=== PATIENT | male | born 1940 | race African-American/Black ===

== ENCOUNTER 2016-06-06 09:11 | Emergency (ER) | payer OTHER ==
[2016-06-06 09:25] VITALS: BMI 22.3
--- NOTE | 2016-06-06 09:54 | PDOC ---
History of Present Illness - General History Source: Patient Exam Limitations: No Limitations - History of Present Illness Initial Comments: 06/06/16 11:29 The patient is a year 75 old male with a significant past medical history of hypertension, and valve replacement (2010), presenting to the Emergency Department with mild shortness of breath as of last night. He reports that his shortness of breath started while he was making dinner last night, it was fairly mild, so he went to bed thinking it would improved. This morning, he reports that the sob worsened when he went to take a shower and was associated with NERI. He reports that he currently has sob at rest, and that it is exacerbated with exertion. He also admits to some lightheadedness. He admits that he is an active person, and denies previously experiencing these symptoms with exertion. He also admits to chronic productive cough. There is no associated chest pain, palpitations, n/v, diaphoresis, hemoptysis, leg swelling, orthopnea. Patient denies and diarrhea. Patient denies fever, or chills. Past Medical Hx: no personal or familial history of DVT or PE Social Hx: former smoker (quit 40 years ago) Surgical Hx: valve replacement (2010) PCP: Dr. Bala Holden Environmental Remediation Specialist: at [facility], patient is unsure of Drs name <Marcia Kumari - Last Filed: 06/06/16 13:09> <Samy Diego - Last Filed: 06/08/16 07:16> - General Chief Complaint: Shortness of Breath Stated Complaint: S.O.B Time Seen by Provider: 06/06/16 09:28 Past History <Marcia Kumari - Last Filed: 06/06/16 13:09> - Past Medical History HTN: Yes - Surgical History Cardiac Surgery: Yes (aortic valvue replace 2010) - Psycho/Social/Smoking Cessation Hx Anxiety: No Suicidal Ideation: No Smoking History: Former smoker Have you smoked in the past 12 months: No Information on smoking cessation initiated: No Hx Alcohol Use: No Drug/Substance Use Hx: No Substance Use Type: None <Samy Diego - Last Filed: 06/08/16 07:16> - Past Medical History Allergies/Adverse Reactions: Allergies Allergy/AdvReac Type Severity Reaction Status Date / Time shellfish derived Allergy Verified 06/06/16 09:21 Home Medications: Ambulatory Orders Naproxen [EC-Naprosyn] 375 mg PO Q12H 06/06/16 Spironolactone [Aldactone] 25 mg PO DAILY 06/06/16 Review of Systems - Review of Systems Able to Perform ROS?: Yes Comments:: 06/06/16 11:30 CONSTITUTIONAL: Reported: + Lightheadedness No reported: Fever, Chills, Diaphoresis, Generalized Weakness, Malaise, Loss of Appetite HEENT: No reported: Rhinorrhea, Nasal Congestion, Throat Pain, Throat Swelling, Difficulty Swallowing, Mouth Swelling, Ear Pain, Eye Pain, Visual Changes CARDIOVASCULAR: No reported: Chest Pain, Syncope, Palpitations, Irregular Heart Rate, Lightheadedness, Peripheral Edema RESPIRATORY: Present: + Shortness of Breath, + Dyspnea on exertion, + Cough (chronic) No reported: Orthopnea, Wheezing, Stridor, Hemoptysis GASTROINTESTINAL: No reported: Abdominal pain, Abdominal Distension, Nausea, Vomiting, Diarrhea, Constipation, Melena, Hematochezia GENITOURINARY: No reported: Dysuria, Frequency, Urgency, Hesitancy, Flank Pain, Genital Pain MUSCULOSKELETAL: No reported: Myalgia, Arthralgia, Joint Swelling, Back pain, Neck Pain SKIN: No reported: Rash, Itching, Pallor HEMATOLOGIC/IMMUNOLOGIC: No reported: Easy Bleeding, Easy Bruising, Lymphadenopathy, Frequent infections ENDOCRINE: No reported: Unexplained Weight Gain, Unexplained Weight Loss, Heat Intolerance , Cold Intolerance NEUROLOGIC: No reported: Headache, Focal Weakness, Paresthesias, Vertigo, Unsteady Gait, Seizure, Mental Status Changes, Incontinence PSYCHIATRIC: No reported: Anxiety, Depression <Marcia Kumari - Last Filed: 06/06/16 13:09> *Physical Exam - Vital Signs Last Vital Signs Temp Pulse Resp BP Pulse Ox 97.8 F 56 L 20 157/91 97 06/06/16 09:23 06/06/16 09:23 06/06/16 09:23 06/06/16 09:23 06/06/16 09:23 - Physical Exam Comments: 06/06/16 11:30 GENERAL: The patient is awake, alert, and fully oriented, Nontoxic - in no acute distress. HEAD: Normocephalic, atraumatic. EYES: extraocular movements intact, sclera anicteric, conjunctiva clear. ENT: Normal voice, Moist mucous membranes. NECK: Normal range of motion, No JVD LUNGS: Breath sounds equal, clear to auscultation bilaterally. No wheezes, no rhonchi, no rales. HEART: regular, bradycardic, without murmur, rub or gallop. ABDOMEN: Soft, nontender, normoactive bowel sounds. No guarding, no rebound. No masses. No CVA tenderness EXTREMITIES: Normal range of motion, no edema. No clubbing or cyanosis. No cords , erythema, or tenderness. NEUROLOGICAL: No facial asymmetry, Normal speech, normal gait. PSYCH: Normal mood, normal affect. SKIN: Warm, Dry, normal turgor. <Marcia Kumari - Last Filed: 06/06/16 13:09> - Vital Signs Last Vital Signs Temp Pulse Resp BP Pulse Ox 97.8 F 56 L 20 157/91 97 06/06/16 09:23 06/06/16 09:23 06/06/16 09:23 06/06/16 09:23 06/06/16 09:23 <Samy Diego - Last Filed: 06/08/16 07:16> Heart Score/ECG Review - ECG Impressions Comment:: 06/06/16 10:32 Twelve-lead EKG was performed and reviewed by me. There is normal sinus rhythm with rate of 49 The axis is normal. First degree AV block QTc interval of 482 T wave inversions in the inferior lateral leads no old ekg for comparison 06/06/16 17:28 Twelve-lead EKG was performed and reviewed by me. There is normal sinus rhythm with rate of 53 The axis is normal. First degree AV block QTc interval of 497 T wave inversions in the inferior lateral leads no changes from prior ekg <Samy Diego - Last Filed: 06/08/16 07:16> ED Treatment Course - LABORATORY CBC & Chemistry Diagram: 06/06/16 10:17 06/06/16 10:17 - ADDITIONAL ORDERS Additional order review: Laboratory Results 06/06/16 06/06/16 06/06/16 10:30 10:26 10:17 D-Dimer Cancelled VBG pH 7.35 POC VBG pCO2 57.9 H POC VBG pO2 21.9 L Mixed VBG HCO3 31.5 H Sodium 142 Potassium 4.2 Chloride 102 Carbon Dioxide 30 Anion Gap 10 BUN 18 Creatinine 1.1 Creat Clearance w eGFR > 60 Random Glucose 101 Calcium 8.9 Total Bilirubin 1.0 AST 29 ALT 31 Alkaline Phosphatase 58 Creatine Kinase Creatine Kinase Index CK-MB (CK-2) Troponin I B-Natriuretic Peptide 1609.37 H Total Protein 7.4 Albumin 3.8 06/06/16 10:17 D-Dimer VBG pH POC VBG pCO2 POC VBG pO2 Mixed VBG HCO3 Sodium Potassium Chloride Carbon Dioxide Anion Gap BUN Creatinine Creat Clearance w eGFR Random Glucose Calcium Total Bilirubin AST ALT Alkaline Phosphatase Creatine Kinase 208 Creatine Kinase Index 2.4 CK-MB (CK-2) 5.174 H Troponin I 0.02 B-Natriuretic Peptide Total Protein Albumin - RADIOLOGY Radiograph Interpretation: 06/06/16 13:09 Chest XRay As reviewed by Dr. Clif Silva IMPRESSION: Large heart. Previous surgery. No acute pathology. <Marcia Kumari - Last Filed: 06/06/16 13:09> - LABORATORY CBC & Chemistry Diagram: 06/06/16 10:17 06/06/16 10:17 <Samy Diego - Last Filed: 06/08/16 07:16> Medical Decision Making - Medical Decision Making 06/06/16 10:25 75y M hx of htn, s/p ao valve replacement 5 years ago presents with gradual onset of sob - started last night, but this morning, worsened significantly when he was in the bathroom when he was feeling sob, feeling like he couldnt catch his breath - no associated chest pain, dizziness, palpitations, n/v, diaphoresis. On exam the patient is in no acute distress, his vitals noted for mild bradycardia to the high 40s-low 50s (he had been told he was bradycardic in the past, likely secondary to his cardiovascular status as he frequently goes to the gym to excercise) differential is wide includes arrythmia/bradycardia, pe, anemia, atypical acs, ptx no cough/fever to suggest pna, no congestion/leg swelling/orthpnea to suggest chf will obtain cbc, cmp, trop, cxr, ekg will reassess 06/06/16 13:41 labs reviewed mild leukopenia noted bnp and ddimer also slightly elevated will obtain cta to r/o pe cxr negative pt curently resiting comfortably in his strtcher A portion of this note was documented by scribe services under my direction. I have reviewed the details of the note, within reason, and agree with the documentation with the following case summary and management plan written by me 06/06/16 15:27 pts CTA of the chest is negative for PE, there is a solitary nodule noted - will have pt fu with his PMD for this in 3 months. The pt is currently asypmtomatic. I will check another trop and ekg. i also discussed with dr. Haywood (covering for dr. Pineda) - he reviewed his last ekg which showed diffuse TWI in the lateral leads as well as infioer leads on his prior ekg as well as one in 2012 - consistent with our EKG here. if the patient is able to ambulate the length of the emergency department (~200 feet) without any sob/neri/cp, i will d/c the pt to fu with dr. pineda on wednesday or wednesday. if he is sob, will keep pt here for further evaluation. Dr. Haywood agrees with the plan. 06/06/16 17:22 pt trop neg pt was ambulating for approx 30 min here in the ED without any cp/sob will dc the pt to fu with dr. Pineda on wednesday return precautions were discussed a copy of the pts blood work and imaging results will be given to the patient, as well as instructiosn to fu imging for his nodule. I discussed the physical exam findings, ancillary test results and final diagnoses with the patient. I answered all of the patient's questions. The patient was satisfied with the care received and felt comfortable with the discharge plan and treatment plan. The patient will call their primary care physician within 24 hours to arrange follow-up and will return to the Emergency Department with any new, persistent or worsening symptoms. 06/08/16 07:16 <Samy Diego - Last Filed: 06/08/16 07:16> *DC/Admit/Observation/Transfer - Attestations Scribe Attestion: 06/06/16 11:30 Documentation prepared by Marcia Kumari, acting as medical billing manager for Samy Diego MD. <Marcia Kumari - Last Filed: 06/06/16 13:09> - Discharge Dispostion Admit: No <Samy Diego - Last Filed: 06/08/16 07:16> Diagnosis at time of Disposition: Shortness of breath, Lung nodule - Discharge Dispostion Disposition: HOME Condition at time of disposition: Improved - Referrals Referrals: Bala Holden [Primary Care Provider] - - Patient Instructions Printed Discharge Instructions: DI for Shortness of Breath Additional Instructions: Return to the emergency department immediately with ANY new, persistent or worsening symptoms including any shortness of breath, chest pain or any other concerns. There was a nodule seen on your Chest CT - pleae follow up with your doctor for further evaluation and monitoring of this. Your workup today was negative for any acute disease - but please make sure you follow up with your doctor for further evaluation of your shortness of breath episode. A copy of your blood work, CT, chest xray will be included so you may review with your doctor. You MUST call and follow up with your doctor on wednesday or wednesday for further evaluation of your symptoms. Results were discussed with you. Please make sure your doctor reviews the results of your emergency evaluation. Print Language: FRISIAN
[2016-06-06 10:30] LABS: VENOUS PH 7.35 (7.32-7.42)
[2016-06-06 10:31] LABS: VENOUS BLOOD GAS HCO3 31.5 meq/L (19-25)
[2016-06-06 11:07] LABS: ALBUMIN 3.8 g/dl (3.4-5.0); ANION GAP 10 (8-16); CALCIUM 8.9 mg/dL (8.5-10.1); CO2 30 mmol/L (21-32); CREATININE 1.1 mg/dL (0.7-1.3); GLUCOSE,RANDOM 101 mg/dL (74-106); SGOT/AST 29 U/L (15-37); SGPT/ALT 31 U/L (12-78); TOT PROT 7.4 g/dl (6.4-8.2)
[2016-06-06 11:09] LABS: ALK PHOS 58 U/L (45-117); TROPONIN I 0.02 ng/ml (0.00-0.05)
[2016-06-06 11:57] LABS: BASOPHIL 1.4 % (0-2.0); EOSINOPHIL 12.2 % (0-4.5); MCH 27.1 pg (25.7-33.7); MCHC 31.4 g/dl (32.0-35.9); MEAN CELL VOLUME 86.2 fl (80-96); MEAN PLT VOLUME 10.8 fl (7.5-11.1); NEUTROPHILS 50.2 % (42.8-82.8); PLATELET COUNT 131 K/MM3 (134-434); RDW 13.4 % (11.9-15.9); WHITE BLOOD COUNT 2.9 K/mm3 (4.0-10.0)
[2016-06-06 16:29] LABS: TROPONIN I 0.03 ng/ml (0.00-0.05)
[2016-06-06 17:44] VITALS: BP 147/79; PULSE 62
[2016-06-06 17:45] VITALS: TEMP 98.2
--- NOTE | 2016-06-06 20:57 | EKG ---
Test Reason : Blood Pressure : / mmHG Vent. Rate : 053 BPM Atrial Rate : 053 BPM P-R Int : 236 ms QRS Dur : 086 ms QT Int : 530 ms P-R-T Axes : 046 015 223 degrees QTc Int : 497 ms SINUS BRADYCARDIA WITH 1ST DEGREE A-V BLOCK ANTERIOR INFARCT , AGE UNDETERMINED ABNORMAL ECG WHEN COMPARED WITH ECG OF 06-JUN-2016 09:33, NO SIGNIFICANT CHANGE WAS FOUND Confirmed by SUSI BOATENG MD ([id number]) on 06/06/2016 8:56:57 PM Referred By: Confirmed By:SUSI BOATENG MD
--- NOTE | 2016-06-06 21:02 | EKG ---
Test Reason : Blood Pressure : / mmHG Vent. Rate : 049 BPM Atrial Rate : 049 BPM P-R Int : 220 ms QRS Dur : 090 ms QT Int : 534 ms P-R-T Axes : 057 001 202 degrees QTc Int : 482 ms SINUS BRADYCARDIA WITH SINUS ARRHYTHMIA WITH 1ST DEGREE A-V BLOCK PROLONGED QT ABNORMAL ECG WHEN COMPARED WITH ECG OF 10-DEC-2003 08:27, NE INTERVAL HAS INCREASED Confirmed by KILO VAZ, SUSI ([id number]) on 06/06/2016 9:01:29 PM Referred By: Confirmed By:SUSI BOATENG MD
== END 2016-06-06 17:47 | disposition home or self-care (01) ==
LOC: JER 09:11 → SUPCPDRO 09:11 → JER 17:47
DX: R06.02 Shortness of breath (principal); R91.1 Solitary pulmonary nodule; I10 Essential (primary) hypertension; Z95.2 Presence of prosthetic heart valve; Z87.891 Personal history of nicotine dependence
CPT/HCPCS: 36415; 71010-TC; 71275-TC; 80053; 82550; 82553; 82803; 83880; 84443; 84484; 85025; 85379; 93005; 93010; 99282-25

== ENCOUNTER 2021-10-21 22:50 | Inpatient (IN) | payer BC, OTHER ==
[2021-10-21 23:06] VITALS: BMI 19.5
[2021-10-22 00:53] LABS: CALCIUM 8.9 mg/dL (8.5-10.1); CHLORIDE 105 mmol/L (98-107); SODIUM 142 mmol/L (136-145)
[2021-10-22 00:55] LABS: ALBUMIN 3.4 g/dl (3.4-5.0); ANION GAP 5 MMOL/L (8-16); BLOOD UREA NITROGEN 20.5 mg/dL (7-18); CO2 33 mmol/L (21-32); GLUCOSE,RANDOM 104 mg/dL (74-106)
[2021-10-22 00:57] LABS: CREATININE 1.3 mg/dL (0.55-1.3); SGOT/AST 41 U/L (15-37); SGPT/ALT 39 U/L (13-61)
[2021-10-22 00:59] LABS: BILIRUBIN,TOTAL 0.7 mg/dL (0.2-1)
[2021-10-22 01:01] LABS: ALK PHOS 88 U/L (45-117)
[2021-10-22 01:47] LABS: BASO % 0.9 % (0-2.0); EOS % 4.9 % (0-4.5); HEMATOCRIT 36.1 % (35.4-49); HEMOGLOBIN 11.7 GM/dL (11.7-16.9); LYMPH % 15.2 % (8-40); MCH 27.6 pg (25.7-33.7); MCHC 32.5 g/dl (32.0-35.9); MEAN CELL VOLUME 84.8 fl (80-96); MEAN PLT VOLUME 10.6 fl (7.5-11.1); MONO % 9.1 % (3.8-10.2); NEUT % 69.9 % (42.8-82.8); PLATELET COUNT 133 10^3/uL (134-434); RBC 4.25 M/mm3 (4.00-5.60); RDW 13.6 % (11.9-15.9); WHITE BLOOD COUNT 3.7 K/mm3 (4.0-10.0)
[2021-10-22] MEDS ORDERED: hydrALAZINE HCL 25 MG TABLET (FP) PO ONE (03:24)
[2021-10-22] MEDS ORDERED: ASPIRIN 81 MG CHEWABLE TABLETS PO ONE (04:16)
[2021-10-22] MEDS ORDERED: hydrALAZINE HCL 25 MG TABLET (FP) ONE (04:30)
[2021-10-22 07:49] LABS: BASO % 0.8 % (0-2.0); EOS % 4.6 % (0-4.5); HEMATOCRIT 34.7 % (35.4-49); HEMOGLOBIN 11.4 GM/dL (11.7-16.9); LYMPH % 21.4 % (8-40); MCH 27.3 pg (25.7-33.7); MCHC 32.8 g/dl (32.0-35.9); MEAN CELL VOLUME 83.4 fl (80-96); NEUT % 62.2 % (42.8-82.8); PLATELET COUNT 122 10^3/uL (134-434); RBC 4.16 M/mm3 (4.00-5.60); RDW 13.5 % (11.9-15.9); WHITE BLOOD COUNT 4.3 K/mm3 (4.0-10.0)
[2021-10-22 08:18] LABS: ALBUMIN 3.2 g/dl (3.4-5.0); BLOOD UREA NITROGEN 17.5 mg/dL (7-18); CALCIUM 8.5 mg/dL (8.5-10.1)
[2021-10-22 08:22] LABS: BILIRUBIN,TOTAL 0.8 mg/dL (0.2-1); TOT PROT 6.6 g/dl (6.4-8.2)
[2021-10-22 08:24] LABS: CHOLESTEROL 170 mg/dL (50-200); LDL CHOLESTEROL (ONLY SJRH) 103 mg/dL (5-100)
[2021-10-22 08:25] LABS: HDL CHOLESTEROL 64 mg/dL (40-60)
[2021-10-22 08:34] LABS: TRIGLYCERIDES 46 mg/dL (0-150)
[2021-10-22 08:40] LABS: PHOSPHOROUS 2.8 mg/dL (2.5-4.9)
[2021-10-22] MEDS ORDERED: ENOXAPARIN NA (PORCINE) 40 MG/0.4 ML DISP.SYRIN SQ ONE (08:53)
[2021-10-22] MEDS: VALSARTAN 160 MG TABLET PO SCH (09:17)
[2021-10-22] MEDS: ENOXAPARIN NA (PORCINE) 40 MG/0.4 ML DISP.SYRIN SQ SCH (09:17)
[2021-10-22] MEDS ORDERED: ATORVASTATIN CA 80 MG TABLET (FP) PO ONE (10:06)
[2021-10-22] MEDS ORDERED: ATORVASTATIN CA 80 MG TABLET (FP) ONE (10:34)
[2021-10-22 13:45] LABS: URINE APPEARANCE CLEAR; URINE BILIRUBIN NEGATIVE (NEGATIVE); URINE COLOR YELLOW; URINE GLUCOSE (UA) NEGATIVE (NEGATIVE); URINE KETONE NEGATIVE (NEGATIVE); URINE LEUK ESTERASE NEGATIVE (NEGATIVE); URINE NITRITE NEGATIVE (NEGATIVE); URINE PROTEIN NEGATIVE (NEGATIVE); URINE UROBILINOGEN 0.2 mg/dL (0.2-1.0)
[2021-10-22] MEDS ORDERED: ATORVASTATIN CA 20 MG TABLET (FP) PO SCH (22:00)
[2021-10-22] MEDS ORDERED: ATORVASTATIN CA 20 MG TABLET (FP) ONE (22:44)
[2021-10-23] MEDS ORDERED: DOCUSATE SODIUM 100 MG CAPSULE (FP) PO ONE (07:34)
[2021-10-23] MEDS: DOCUSATE SODIUM 100 MG CAPSULE (FP) PO SCH ×2 (07:37→11:02)
[2021-10-23] MEDS ORDERED: ASPIRIN 81 MG CHEWABLE TABLETS PO SCH (10:00)
[2021-10-23] MEDS ORDERED: SPIRONOLACTONE 25 MG TABLET PO SCH (10:00)
[2021-10-23] MEDS: VALSARTAN 160 MG TABLET PO SCH (11:02)
[2021-10-23] MEDS: ENOXAPARIN NA (PORCINE) 40 MG/0.4 ML DISP.SYRIN SQ SCH (11:03)
[2021-10-23] MEDS ORDERED: CARVEDILOL 3.125 MG TABLET (FP) PO SCH (11:30)
[2021-10-23 15:15] VITALS: BP 171/97; PULSE 61; TEMP 98.3
[2021-10-23] MEDS ORDERED: amLODIPine BESYLATE 2.5 MG TABLET (FP) PO SCH (18:00)
== END 2021-10-23 18:36 | disposition home or self-care (01) | DRG 948 ==
LOC: JER 22:50 → JERBED 10-22 02:13 → OBSVTOIN 10-22 16:39 → J4S 10-23 10:15
PROVIDERS: ADMIT Hospitalist; ATTEND Internal Medicine
DX: R41.82 Altered mental status, unspecified (principal); I50.22 Chronic systolic (congestive) heart failure; I44.2 Atrioventricular block, complete; I42.8 Other cardiomyopathies; I48.20 Chronic atrial fibrillation, unspecified; I24.8 Other forms of acute ischemic heart disease; I11.0 Hypertensive heart disease with heart failure; I27.20 Pulmonary hypertension, unspecified; F43.9 Reaction to severe stress, unspecified; R55 Syncope and collapse; Z95.2 Presence of prosthetic heart valve; Z95.0 Presence of cardiac pacemaker
CPT/HCPCS: 36415; 70450-TC; 71045-TC-FY; 80053; 80061; 81003; 83735; 83880; 84100; 84443; 84484; 85025; 87086; 93005; 93010; 93306-TC; 99285-25; C9803-CS; G0378; U0003; U0005

== ENCOUNTER 2021-12-18 04:14 | Day surgery (SDC) | payer BC ==
[2021-12-16 12:23] VITALS: BMI 19.5
[~2021-12-18 04:14] MED LIST: TOBRAMYCIN/DEXAMETHASONE OPHTH. OINTMENT 1 TUBE TP ONE
[2021-12-18] MEDS: CIPROFLOXACIN 0.3% EYE DROPS 5 ML BOTTLE ONE ×3 (06:30→06:40)
[2021-12-18] MEDS: PHENYLEPHRINE 2.5% OPHTH SOLN 15 ML BOTTLE ONE ×3 (06:30→06:40)
[2021-12-18] MEDS: DICLOFENAC SODIUM 0.1% OPHTHALMIC 2.5ML BOTTLE ONE ×3 (06:30→06:40)
[2021-12-18] MEDS: TROPICAMIDE 1% OPHTH SOLN 15 ML BOTTLE ONE ×3 (06:30→06:40)
[2021-12-18] MEDS ORDERED: POVIDONE-IODINE 5% OPHTHALMIC PREP 30 ML SOLUTION ONE (07:06)
[2021-12-18] MEDS ORDERED: TETRACAINE 0.5% OPHTH SOLN 2 ML BOTTLE ONE (07:06)
[2021-12-18] MEDS ORDERED: TOBRAMYCIN/DEXAMETHASONE OPHTH. OINTMENT 1 TUBE ONE (07:08)
[2021-12-18] MEDS ORDERED: EPINEPHrine/PF 1 MG/1 ML (1:1,000) AMPULE ONE (07:09)
[2021-12-18] MEDS ORDERED: LIDOCAINE HCL/PF 1% SDV 5ML VIAL ONE (07:09)
[2021-12-18] MEDS ORDERED: BSS (NA/CA/MG/K) BALANCED SALT SOLUTION OPHTH SOLN 15 ML BOTTLE ONE (07:10)
[2021-12-18] MEDS ORDERED: ACETAMINOPHEN 325 MG TABLET (FP) PO PRN (07:33)
[2021-12-18] MEDS ORDERED: MIDAZOLAM HCL 2 MG/2 ML SINGLE DOSE VIAL ONE (07:38)
[2021-12-18] MEDS ORDERED: TETRACAINE 0.5% OPHTH SOLN 2 ML BOTTLE TP ONE (07:41)
[2021-12-18] MEDS ORDERED: POVIDONE-IODINE 5% OPHTHALMIC PREP 30 ML SOLUTION OD ONE (07:43)
[2021-12-18] MEDS ORDERED: TROPICAMIDE 1% OPHTH SOLN 15 ML BOTTLE OP SCH (07:45)
[2021-12-18] MEDS ORDERED: CIPROFLOXACIN HCL 0.3% OPHTH 2.5ML BOTTLE OP SCH (07:45)
[2021-12-18] MEDS ORDERED: KETOROLAC TROMETHAMINE 0.5% EYE DROP 1 DROP DROPS OP SCH (07:45)
[2021-12-18] MEDS ORDERED: PHENYLEPHRINE 2.5% OPHTH SOLN 15 ML BOTTLE OP SCH (07:45)
[2021-12-18] MEDS ORDERED: TRYPAN BLUE 0.5 ML DISP.SYRIN ONE (07:54)
[2021-12-18] MEDS ORDERED: BSS (NA/CA/MG/K) BALANCED SALT SOLUTION OPHTH SOLN 15 ML BOTTLE OD ONE (07:55)
[2021-12-18] MEDS ORDERED: TRYPAN BLUE 0.5 ML DISP.SYRIN IO ONE (07:56)
[2021-12-18] MEDS ORDERED: LIDOCAINE HCL 1% PRESERVATIVE FREE - 30ML VIAL IO ONE (07:56)
[2021-12-18] MEDS ORDERED: CHONDROITIN SU A/HYALUR SOD 1 KIT IO ONE (07:56)
[2021-12-18] MEDS ORDERED: EPINEPHrine/PF 1 MG/1 ML (1:1,000) AMPULE SQ ONE (08:03)
[2021-12-18] MEDS ORDERED: TOBRAMYCIN/DEXAMETHASONE OPHTH. OINTMENT 1 TUBE TP ONE (08:21)
[2021-12-18 10:31] VITALS: RESP 20; TEMP 98.2
[2021-12-18 10:34] VITALS: BP 171/94; PULSE 80
== END 2021-12-18 09:22 | disposition home or self-care (01) ==
LOC: JASU-SURG 04:14
PROVIDERS: ATTEND Ophthalmology
PROC: 08RJ3JZ Replacement of Right Lens with Synthetic Substitute, Percutaneous Approach (ICD-10-PCS; principal; 2021-12-18 07:30)
DX: H25.11 Age-related nuclear cataract, right eye (principal)

== ENCOUNTER 2021-12-29 22:07 | Inpatient (IN) | payer BC ==
[2021-12-29 22:43] VITALS: BMI 19.5
[2021-12-29 23:23] LABS: BASO % 0.6 % (0-2.0); EOS % 0.9 % (0-4.5); HEMOGLOBIN 12.3 GM/dL (11.7-16.9); LYMPH % 7.5 % (8-40); MCH 27.9 pg (25.7-33.7); MCHC 32.4 g/dl (32.0-35.9); MEAN PLT VOLUME 10.3 fl (7.5-11.1); MONO % 8.3 % (3.8-10.2); NEUT % 82.7 % (42.8-82.8); PLATELET COUNT 160 10^3/uL (134-434); RBC 4.42 M/mm3 (4.00-5.60); RDW 14.2 % (11.9-15.9); WHITE BLOOD COUNT 6.2 K/mm3 (4.0-10.0)
[2021-12-29 23:26] LABS: EPI CELLS 10 /uL (0-25.1); HYALINE CASTS 4 /uL (0-3.1); URINE APPEARANCE CLEAR; URINE BACTERIA 8 /uL (0-1359); URINE BILIRUBIN NEGATIVE (NEGATIVE); URINE COLOR YELLOW; URINE GLUCOSE (UA) NEGATIVE (NEGATIVE); URINE KETONE NEGATIVE (NEGATIVE); URINE LEUK ESTERASE NEGATIVE (NEGATIVE); URINE NITRITE NEGATIVE (NEGATIVE); URINE PROTEIN 2+ (NEGATIVE); URINE RBC 39 /uL (0-23.9); URINE UROBILINOGEN 0.2 mg/dL (0.2-1.0); URINE WBC 12 /uL (0-25.8)
[2021-12-29 23:28] LABS: PHENCYCLIDINE,URINE NEGATIVE (NEGATIVE); URINE BARBITURATES NEGATIVE (NEGATIVE); URINE BENZODIAZEPINES NEGATIVE (NEGATIVE)
[2021-12-29 23:29] LABS: COCAINE, UR NEGATIVE (NEGATIVE); METHADONE, UR NEGATIVE (NEGATIVE)
[2021-12-29 23:31] LABS: INR 1.05 (0.83-1.09); PROTHROMBIN TIME (PATIENT) 12.1 SEC (9.7-13.0)
[2021-12-29 23:42] LABS: CHLORIDE 101 mmol/L (98-107); SODIUM 134 mmol/L (136-145)
[2021-12-29 23:44] LABS: CALCIUM 8.9 mg/dL (8.5-10.1)
[2021-12-29 23:45] LABS: ALBUMIN 3.3 g/dl (3.4-5.0); BLOOD UREA NITROGEN 18.4 mg/dL (7-18); CO2 28 mmol/L (21-32); GLUCOSE,RANDOM 119 mg/dL (74-106); LACTIC ACID 4.4 mmol/L (0.4-2.0); OPIATES, URI NEGATIVE (NEGATIVE); URINE AMPHETAMINES NEGATIVE (NEGATIVE)
[2021-12-29 23:48] LABS: CREATININE 1.4 mg/dL (0.55-1.3); SGOT/AST 171 U/L (15-37)
[2021-12-29 23:49] LABS: TOT PROT 8.4 g/dl (6.4-8.2)
[2021-12-29 23:50] LABS: BILIRUBIN,TOTAL 0.9 mg/dL (0.2-1)
[2021-12-29 23:51] LABS: ALK PHOS 81 U/L (45-117)
[2021-12-29 23:53] LABS: ANION GAP 4 MMOL/L (8-16); SGPT/ALT 64 U/L (13-61)
[2021-12-30] MEDS ORDERED: SODIUM CHLORIDE 0.9% 500 ML INFUS.BAG IV ONE (00:02)
[2021-12-30 01:52] LABS: VENOUS BASE EXCESS 3.8 mmol/L (-2-2); VENOUS O2 SATURATION 41.8 % (70-80); VENOUS PH 7.404 (7.310-7.410)
[2021-12-30 01:53] LABS: CHLORIDE 106 mmol/L (98-107); SODIUM 142 mmol/L (136-145)
[2021-12-30 01:58] LABS: ANION GAP 7 MMOL/L (8-16); BLOOD UREA NITROGEN 17.1 mg/dL (7-18); CALCIUM 8.6 mg/dL (8.5-10.1); CO2 29 mmol/L (21-32)
[2021-12-30 01:59] LABS: CREATININE 1.2 mg/dL (0.55-1.3)
[2021-12-30 02:07] LABS: GLUCOSE,RANDOM 97 mg/dL (74-106)
[2021-12-30] MEDS ORDERED: ASPIRIN 81 MG CHEWABLE TABLETS PO ONE (02:16)
[2021-12-30] MEDS ORDERED: ASPIRIN 81 MG CHEWABLE TABLETS ONE (02:20)
[2021-12-30 06:47] LABS: BASO % 0.5 % (0-2.0); EOS % 0.4 % (0-4.5); HEMOGLOBIN 11.3 GM/dL (11.7-16.9); MCH 27.6 pg (25.7-33.7); MCHC 32.3 g/dl (32.0-35.9); MEAN CELL VOLUME 85.3 fl (80-96); MEAN PLT VOLUME 9.8 fl (7.5-11.1); MONO % 7.6 % (3.8-10.2); NEUT % 82.5 % (42.8-82.8); PLATELET COUNT 128 10^3/uL (134-434); WHITE BLOOD COUNT 5.6 K/mm3 (4.0-10.0)
[2021-12-30 07:07] LABS: CHLORIDE 105 mmol/L (98-107); SODIUM 141 mmol/L (136-145)
[2021-12-30 07:09] LABS: CALCIUM 8.4 mg/dL (8.5-10.1)
[2021-12-30 07:10] LABS: ALBUMIN 3.1 g/dl (3.4-5.0); ANION GAP 7 MMOL/L (8-16); BLOOD UREA NITROGEN 14.8 mg/dL (7-18); CO2 29 mmol/L (21-32); GLUCOSE,RANDOM 85 mg/dL (74-106); MAGNESIUM 1.9 mg/dL (1.8-2.4)
[2021-12-30 07:12] LABS: SGOT/AST 45 U/L (15-37); SGPT/ALT 36 U/L (13-61)
[2021-12-30 07:13] LABS: PHOSPHOROUS 2.3 mg/dL (2.5-4.9)
[2021-12-30 07:14] LABS: TOT PROT 6.6 g/dl (6.4-8.2)
[2021-12-30 07:15] LABS: ALK PHOS 76 U/L (45-117)
[2021-12-30] MEDS ORDERED: amLODIPine BESYLATE 5 MG TABLET (FP) ONE (09:49)
[2021-12-30] MEDS ORDERED: ENOXAPARIN NA (PORCINE) 40 MG/0.4 ML DISP.SYRIN SQ ONE (09:50)
[2021-12-30] MEDS: ENOXAPARIN NA (PORCINE) 40 MG/0.4 ML DISP.SYRIN SQ SCH (10:45)
[2021-12-30] MEDS: amLODIPine BESYLATE 5 MG TABLET (FP) PO SCH (10:45)
[2021-12-30] MEDS: TORSEMIDE 10 MG TABLET PO SCH (10:45)
[2021-12-30] MEDS: ATORVASTATIN CA 20 MG TABLET (FP) PO SCH (21:17)
[2021-12-31 09:48] LABS: HEMATOCRIT 39.5 % (35.4-49); MCH 28.1 pg (25.7-33.7); MEAN CELL VOLUME 85.1 fl (80-96); MEAN PLT VOLUME 9.1 fl (7.5-11.1); PLATELET COUNT 144 10^3/uL (134-434); RBC 4.64 M/mm3 (4.00-5.60); WHITE BLOOD COUNT 4.2 K/mm3 (4.0-10.0)
[2021-12-31] MEDS ORDERED: PATIENT'S OWN MEDICATION (NON-FORMULARY) (Betamethasone/Propylene Glyc [Betamethasone Dp A TP SCH (10:00)
[2021-12-31 10:06] LABS: BLOOD UREA NITROGEN 16.5 mg/dL (7-18); MAGNESIUM 1.8 mg/dL (1.8-2.4)
[2021-12-31 10:09] LABS: CREATININE 1.3 mg/dL (0.55-1.3); PHOSPHOROUS 2.9 mg/dL (2.5-4.9)
[2021-12-31] MEDS: amLODIPine BESYLATE 5 MG TABLET (FP) PO SCH (10:40)
[2021-12-31] MEDS: ENOXAPARIN NA (PORCINE) 40 MG/0.4 ML DISP.SYRIN SQ SCH (10:40)
[2021-12-31] MEDS: TORSEMIDE 10 MG TABLET PO SCH (10:40)
[2021-12-31] MEDS ORDERED: POTASSIUM CHLORIDE ORAL LIQUID 20 MEQ/15 ML PO ONE ×2 (12:52→19:47)
[2021-12-31] MEDS ORDERED: SODIUM CHLORIDE 250 ML IV STA (12:53)
[2021-12-31] MEDS ORDERED: KCL 10 MEQ IVPB 10 MEQ/100 ML INFUS.BAG IVPB SCH (13:00)
[2021-12-31] MEDS: KCL 10 MEQ IVPB 10 MEQ/100 ML INFUS.BAG IVPB SCH ×3 (16:01→18:16)
[2021-12-31] MEDS ORDERED: DOCUSATE SODIUM 100 MG CAPSULE (FP) PO ONE (19:50)
[2021-12-31] MEDS ORDERED: POLYETHYLENE GLYCOL (HEALTHYLAX) 3350 17 GM PACKET PO ONE (20:00)
[2021-12-31] MEDS: ATORVASTATIN CA 20 MG TABLET (FP) PO SCH (21:04)
[2021-12-31 22:40] VITALS: RESP 20
[2022-01-01 08:24] LABS: HEMATOCRIT 38.8 % (35.4-49); HEMOGLOBIN 12.6 GM/dL (11.7-16.9); MCH 27.7 pg (25.7-33.7); MCHC 32.5 g/dl (32.0-35.9); MEAN CELL VOLUME 85.2 fl (80-96); MEAN PLT VOLUME 9.1 fl (7.5-11.1); PLATELET COUNT 135 10^3/uL (134-434); RBC 4.56 M/mm3 (4.00-5.60); RDW 13.9 % (11.9-15.9); WHITE BLOOD COUNT 4.1 K/mm3 (4.0-10.0)
[2022-01-01 08:40] LABS: BLOOD UREA NITROGEN 17.8 mg/dL (7-18)
[2022-01-01 08:42] LABS: MAGNESIUM 1.6 mg/dL (1.8-2.4); PHOSPHOROUS 3.5 mg/dL (2.5-4.9)
[2022-01-01 08:43] LABS: CREATININE 1.2 mg/dL (0.55-1.3)
[2022-01-01] MEDS ORDERED: MAGNESIUM SULF 50% (8.12 MEQ/2 ML-1 GM VIAL) IVPB ONE (09:00)
[2022-01-01] MEDS ORDERED: amLODIPine BESYLATE 10 MG TABLET (FP) PO SCH (10:00)
[2022-01-01] MEDS ORDERED: LOSARTAN POTASSIUM 50 MG TABLET PO SCH (10:00)
[2022-01-01] MEDS: TORSEMIDE 10 MG TABLET PO SCH (10:10)
[2022-01-01] MEDS: ENOXAPARIN NA (PORCINE) 40 MG/0.4 ML DISP.SYRIN SQ SCH (10:10)
[2022-01-01] MEDS ORDERED: LOSARTAN POTASSIUM 50 MG TABLET PO ONE (15:06)
[2022-01-01 15:18] VITALS: BP 163/86; PULSE 60; TEMP 98.6
== END 2022-01-01 18:43 | disposition home or self-care (01) | DRG 101 ==
LOC: JER 22:07 → JERBED 12-30 00:42 → J4S 12-30 18:16
PROVIDERS: ADMIT Internal Medicine; ATTEND Internal Medicine
DX: R56.9 Unspecified convulsions (principal); I24.8 Other forms of acute ischemic heart disease; I48.21 Permanent atrial fibrillation; I42.8 Other cardiomyopathies; I50.42 Chronic combined systolic (congestive) and diastolic (congestive) heart failure; R64 Cachexia; Z68.1 Body mass index [BMI] 19.9 or less, adult; E44.0 Moderate protein-calorie malnutrition; R41.82 Altered mental status, unspecified; I10 Essential (primary) hypertension; R00.1 Bradycardia, unspecified; W18.39XA Other fall on same level, initial encounter; R55 Syncope and collapse; I27.20 Pulmonary hypertension, unspecified; R77.8 Other specified abnormalities of plasma proteins; F03.90 Unspecified dementia, unspecified severity, without behavioral disturbance, psychotic disturbance, mood disturbance, and anxiety; I11.0 Hypertensive heart disease with heart failure; Z95.0 Presence of cardiac pacemaker; Z95.2 Presence of prosthetic heart valve; Y93.89 Activity, other specified; Y92.89 Other specified places as the place of occurrence of the external cause
CPT/HCPCS: 0241U-QW; 36415; 70450-TC; 71045-TC-FY; 72125-TC; 80048; 80053; 80307; 81003; 82550; 82553; 82803; 82962; 83605; 83735; 84100; 84484; 85025; 85027; 85610; 85730; 86850; 86900; 86901; 87086; 93005; 93010; 93306-TC; 95816; 97116-GP; 97161-GP; 99291; 99292

== ENCOUNTER 2022-05-21 04:12 | Day surgery (SDC) | payer BC ==
[2022-05-21] MEDS ORDERED: PHENYLEPHRINE 2.5% OPTHALMIC DROP 2ML BOTTLE ONE (06:15)
[2022-05-21] MEDS ORDERED: KETOROLAC TROMETHAMINE 0.5% EYE DROP 1 DROP DROPS ONE (06:15)
[2022-05-21] MEDS ORDERED: CIPROFLOXACIN HCL 0.3% OPHTH 2.5ML BOTTLE ONE (06:15)
[2022-05-21] MEDS ORDERED: TROPICAMIDE 1% OPHTH SOLN 15 ML BOTTLE ONE (06:16)
[2022-05-21] MEDS ORDERED: KETOROLAC TROMETHAMINE 0.5% EYE DROP 1 DROP DROPS OS ONE ×3 (06:20→06:45)
[2022-05-21] MEDS ORDERED: PHENYLEPHRINE 2.5% OPHTH SOLN 15 ML BOTTLE OS ONE ×3 (06:20→06:45)
[2022-05-21] MEDS ORDERED: CIPROFLOXACIN HCL 0.3% OPHTH 2.5ML BOTTLE OS ONE ×3 (06:20→06:45)
[2022-05-21] MEDS ORDERED: TROPICAMIDE 1% OPHTH SOLN 15 ML BOTTLE OS ONE ×3 (06:20→06:45)
[2022-05-21 06:28] VITALS: RESP 18
[2022-05-21] MEDS ORDERED: TOBRAMYCIN/DEXAMETHASONE OPHTH. OINTMENT 1 TUBE ONE (07:17)
[2022-05-21] MEDS ORDERED: EPINEPHrine/PF 1 MG/1 ML (1:1,000) AMPULE ONE (07:17)
[2022-05-21] MEDS ORDERED: TETRACAINE 0.5% OPHTH SOLN 2 ML BOTTLE ONE (07:18)
[2022-05-21] MEDS ORDERED: LIDOCAINE HCL/PF 1% SDV 5ML VIAL ONE (07:18)
[2022-05-21] MEDS ORDERED: POVIDONE-IODINE 5% OPHTHALMIC PREP 30 ML SOLUTION ONE (07:18)
[2022-05-21] MEDS ORDERED: ACETAMINOPHEN 325 MG TABLET (FP) PO PRN (07:27)
[2022-05-21] MEDS ORDERED: CIPROFLOXACIN HCL 0.3% OPHTH 2.5ML BOTTLE OP SCH (07:30)
[2022-05-21] MEDS ORDERED: TROPICAMIDE 1% OPHTH SOLN 15 ML BOTTLE OP SCH (07:30)
[2022-05-21] MEDS ORDERED: KETOROLAC TROMETHAMINE 0.5% EYE DROP 1 DROP DROPS OP SCH (07:30)
[2022-05-21] MEDS ORDERED: PHENYLEPHRINE 2.5% OPHTH SOLN 15 ML BOTTLE OP SCH (07:30)
[2022-05-21] MEDS ORDERED: BSS (NA/CA/MG/K) BALANCED SALT SOLUTION OPHTH SOLN 15 ML BOTTLE ONE (07:31)
[2022-05-21] MEDS ORDERED: MIDAZOLAM HCL 2 MG/2 ML SINGLE DOSE VIAL ONE (07:46)
[2022-05-21] MEDS ORDERED: TETRACAINE 0.5% OPHTH SOLN 2 ML BOTTLE OS ONE (07:47)
[2022-05-21] MEDS ORDERED: POVIDONE-IODINE 5% OPHTHALMIC PREP 30 ML SOLUTION OS ONE (07:50)
[2022-05-21] MEDS ORDERED: BSS (NA/CA/MG/K) BALANCED SALT SOLUTION OPHTH SOLN 15 ML BOTTLE OS ONE (07:55)
[2022-05-21] MEDS ORDERED: LIDOCAINE HCL 1% PRESERVATIVE FREE - 30ML VIAL IO ONE (07:56)
[2022-05-21] MEDS ORDERED: CHONDROITIN SU A/HYALUR SOD 1 KIT IO ONE ×2 (07:57)
[2022-05-21] MEDS ORDERED: TRYPAN BLUE 0.5 ML DISP.SYRIN IO ONE (07:59)
[2022-05-21] MEDS ORDERED: EPINEPHrine/PF 1 MG/1 ML (1:1,000) AMPULE SQ ONE (08:07)
[2022-05-21] MEDS ORDERED: TOBRAMYCIN/DEXAMETHASONE OPHTH. OINTMENT 1 TUBE OS ONE (08:26)
[2022-05-21 10:15] VITALS: BP 150/82; PULSE 72; TEMP 98.7
== END 2022-05-21 10:00 | disposition home or self-care (01) ==
LOC: JASU-SURG 04:12
PROVIDERS: ATTEND Ophthalmology
PROC: 08RK3JZ Replacement of Left Lens with Synthetic Substitute, Percutaneous Approach (ICD-10-PCS; principal; 2022-05-21 07:30)
DX: H26.9 Unspecified cataract (principal)
CPT/HCPCS: V2632

== ENCOUNTER 2022-07-28 22:39 | Observation (INO) | payer BC ==
[2022-07-28 22:49] VITALS: BMI 20.7
[2022-07-28] MEDS ORDERED: SODIUM CHLORIDE 0.9% 500 ML INFUS.BAG IV ONE ×2 (23:35→23:37)
[2022-07-28 23:42] LABS: EOS % 6.7 % (0-4.5); HEMATOCRIT 33.3 % (35.4-49); HEMOGLOBIN 11.1 GM/dL (11.7-16.9); LYMPH % 13.9 % (8-40); MCH 27.9 pg (25.7-33.7); MCHC 33.5 g/dl (32.0-35.9); MEAN CELL VOLUME 83.3 fl (80-96); MONO % 9.3 % (3.8-10.2); NEUT % 69.1 % (42.8-82.8); RDW 13.3 % (11.9-15.9); WHITE BLOOD COUNT 5.8 K/mm3 (4.0-10.0)
[2022-07-29] MEDS ORDERED: levETIRAcetam 500 MG/5 ML INJECTION VIAL IVPB ONE ×2 (00:11→00:14)
[2022-07-29 00:12] LABS: BLOOD UREA NITROGEN 21.2 mg/dL (7-18); CALCIUM 8.8 mg/dL (8.5-10.1)
[2022-07-29 00:13] LABS: ALBUMIN 3.3 g/dl (3.4-5.0)
[2022-07-29 00:16] LABS: CREATININE 1.3 mg/dL (0.55-1.3)
[2022-07-29 00:17] LABS: BILIRUBIN,TOTAL 0.7 mg/dL (0.2-1); TOT PROT 7.1 g/dl (6.4-8.2)
[2022-07-29] MEDS ORDERED: LORazepam 2 MG/ML SDV VIAL IVPB STA (00:44)
[2022-07-29] MEDS ORDERED: DOCUSATE SODIUM 100 MG CAPSULE (FP) PO PRN (01:49)
[2022-07-29] MEDS ORDERED: ACETAMINOPHEN 1000 MG/100 ML BAG IVPB PRN (01:56)
[2022-07-29] MEDS ORDERED: metoPROLOL SUCCINATE 25 MG TAB.SR.24H (FP) PO ONE ×2 (03:38→08:28)
[2022-07-29 03:56] LABS: EPI CELLS 3 /uL (0-25.1); HYALINE CASTS 0 /uL (0-3.1); URINE APPEARANCE CLEAR; URINE BACTERIA 8 /uL (0-1359); URINE BILIRUBIN NEGATIVE (NEGATIVE); URINE COLOR YELLOW; URINE GLUCOSE (UA) NEGATIVE (NEGATIVE); URINE KETONE NEGATIVE (NEGATIVE); URINE LEUK ESTERASE NEGATIVE (NEGATIVE); URINE NITRITE NEGATIVE (NEGATIVE); URINE PROTEIN 2+ (NEGATIVE); URINE RBC 30 /uL (0-23.9); URINE WBC 7 /uL (0-25.8)
[2022-07-29 05:25] LABS: MEAN PLT VOLUME 10.9 fl (7.5-11.1); PLATELET COUNT 173 10^3/uL (134-434)
[2022-07-29 06:12] VITALS: PULSE 60
[2022-07-29] MEDS ORDERED: levETIRAcetam 500 MG TABLET (FP) PO ONE (08:28)
[2022-07-29] MEDS ORDERED: LOSARTAN POTASSIUM 50 MG TABLET ONE (08:28)
[2022-07-29] MEDS ORDERED: amLODIPine BESYLATE 10 MG TABLET (FP) ONE (08:28)
[2022-07-29] MEDS ORDERED: VALSARTAN 160 MG TABLET PO SCH (10:00)
[2022-07-29] MEDS ORDERED: amLODIPine BESYLATE 10 MG TABLET (FP) PO SCH (10:00)
[2022-07-29] MEDS ORDERED: levETIRAcetam 250 MG TABLET PO SCH (10:00)
[2022-07-29] MEDS ORDERED: levETIRAcetam 500 MG TABLET (FP) PO SCH (10:00)
[2022-07-29] MEDS ORDERED: LOSARTAN POTASSIUM 50 MG TABLET PO SCH (10:00)
[2022-07-29] MEDS ORDERED: metoPROLOL SUCCINATE 25 MG TAB.SR.24H (FP) PO SCH (10:00)
[2022-07-29] MEDS ORDERED: TORSEMIDE 10 MG TABLET PO SCH ×2 (10:00)
[2022-07-29 10:27] VITALS: RESP 18
[2022-07-29] MEDS ORDERED: VALSARTAN 80 MG TABLET ONE (10:38)
[2022-07-29 11:47] LABS: BASO % 1.1 % (0-2.0); EOS % 6.4 % (0-4.5); HEMATOCRIT 34.3 % (35.4-49); HEMOGLOBIN 11.4 GM/dL (11.7-16.9); LYMPH % 21.3 % (8-40); MCH 27.7 pg (25.7-33.7); MCHC 33.4 g/dl (32.0-35.9); MEAN PLT VOLUME 9.7 fl (7.5-11.1); NEUT % 60.2 % (42.8-82.8); PLATELET COUNT 134 10^3/uL (134-434); RBC 4.13 M/mm3 (4.00-5.60); RDW 13.2 % (11.9-15.9); WHITE BLOOD COUNT 4.5 K/mm3 (4.0-10.0)
[2022-07-29 11:55] LABS: INR 1.15 (0.83-1.09); PROTHROMBIN TIME (PATIENT) 13.3 SEC (9.7-13.0)
[2022-07-29 11:57] LABS: ACTIVATED PTT 27.5 SECONDS (25.2-36.5)
[2022-07-29 12:07] LABS: CALCIUM 8.6 mg/dL (8.5-10.1)
[2022-07-29 12:22] LABS: BLOOD UREA NITROGEN 17.3 mg/dL (7-18)
[2022-07-29 16:25] VITALS: BP 154/84; TEMP 98.4
[2022-07-30] MEDS ORDERED: ACETAMINOPHEN 325 MG TABLET (FP) PO PRN (01:49)
== END 2022-07-29 16:37 | disposition home or self-care (01) ==
LOC: JER 22:39 → JERBED 07-29 01:27
PROVIDERS: ADMIT Internal Medicine; ATTEND Internal Medicine
PROC: 3E033GC Introduction of Other Therapeutic Substance into Peripheral Vein, Percutaneous Approach (ICD-10-PCS; principal; 2022-07-29)
PROC: 3E0337Z Introduction of Electrolytic and Water Balance Substance into Peripheral Vein, Percutaneous Approach (ICD-10-PCS; 2022-07-29)
DX: R56.9 Unspecified convulsions (principal); I11.0 Hypertensive heart disease with heart failure; I50.20 Unspecified systolic (congestive) heart failure; I48.91 Unspecified atrial fibrillation; Z95.3 Presence of xenogenic heart valve; Z95.0 Presence of cardiac pacemaker
CPT/HCPCS: 0241U-QW; 36415; 70450-TC; 71045-TC-FY; 80048; 80053; 80061; 81003; 82550; 82553; 83036; 83735; 84443; 85025; 85610; 85730; 87086; 93005; 93010; 96374; 99285-25; G0378

== ENCOUNTER 2024-03-21 15:29 | Inpatient (IN) | payer BC ==
[2024-03-21] MEDS: ALBUTEROL SO4 2.5/IPRATROPIUM 0.5 INH SOL 3 ML VIAL.NEB. NEB SCH (17:01)
[2024-03-21] MEDS ORDERED: ACETAMINOPHEN INJECTION 100 ML ONE (17:03)
[2024-03-21] MEDS: ACETAMINOPHEN 1000 MG/100 ML BAG IVPB ONE (17:26)
[2024-03-21 17:42] LABS: INR 1.08 (0.83-1.09); PROTHROMBIN TIME (PATIENT) 12.4 SEC (9.7-13.0)
[2024-03-21 17:45] LABS: ACTIVATED PTT 29.4 SECONDS (25.2-36.5)
[2024-03-21 18:01] LABS: BASO % 0.4 % (0-2.0); EOS % 0.4 % (0-4.5); HEMATOCRIT 37.9 % (35.4-49); HEMOGLOBIN 12.1 GM/dL (11.7-16.9); LYMPH % 6.9 % (8-40); MCHC 32.1 g/dl (32.0-35.9); MEAN CELL VOLUME 84.3 fl (80-96); MEAN PLT VOLUME 10.2 fl (7.5-11.1); NEUT % 81.3 % (42.8-82.8); PLATELET COUNT 126 10^3/uL (134-434); POTASSIUM 3.8 mmol/L (3.5-5.1); WHITE BLOOD COUNT 5.1 K/mm3 (4.0-10.0)
[2024-03-21 18:02] LABS: ALBUMIN 4.1 g/dl (3.4-5.0); CALCIUM 9.8 mg/dL (8.5-10.1)
[2024-03-21 18:03] LABS: BLOOD UREA NITROGEN 25.2 mg/dL (7-18)
[2024-03-21 18:07] LABS: CREATININE 1.8 mg/dL (0.55-1.3)
[2024-03-21 18:08] LABS: TOT PROT 8.3 g/dl (6.4-8.2)
[2024-03-21] MEDS: TORSEMIDE 20 MG TABLET (FP) PO ONE (18:35)
[2024-03-21] MEDS ORDERED: OSELTAMIVIR PHOSPHATE 75 MG CAPSULE ONE (18:58)
[2024-03-21] MEDS ORDERED: CEFTRIAXONE 1 G/50 ML PREMIX 50 ML IVPB ONE (18:58)
[2024-03-21] MEDS ORDERED: AZITHROMYCIN IVPB 500 MG/250 ML BAG IVPB ONE (18:59)
[2024-03-21] MEDS: OSELTAMIVIR PHOSPHATE 75 MG CAPSULE PO ONE (19:11)
[2024-03-21] MEDS: AZITHROMYCIN IVPB 500 MG in DEXTROSE 5%-WATER - 250 ML IVPB ONE (19:26)
[2024-03-21] MEDS: acetaZOLAMIDE 250 MG TABLET PO ONE (23:03)
[2024-03-21] MEDS ORDERED: ALBUTEROL SO4 2.5/IPRATROPIUM 0.5 INH SOL 3 ML VIAL.NEB. NEB PRN (23:47)
[2024-03-21] MEDS ORDERED: ACETAMINOPHEN 325 MG TABLET (FP) PO PRN (23:51)
[2024-03-22] MEDS ORDERED: methylPREDNISolone NA SUCC 125 MG/2 ML VIAL ONE (00:26)
[2024-03-22] MEDS: methylPREDNISolone NA SUCC 125 MG/2 ML VIAL IVPUSH ONE (00:46)
[2024-03-22] MEDS ORDERED: methylPREDNISolone NA SUCC 40 MG/1 ML VIAL ONE (06:37)
[2024-03-22] MEDS: methylPREDNISolone NA SUCC 40 MG/1 ML VIAL IVPB SCH ×2 (06:42→09:49)
[2024-03-22 07:36] LABS: POTASSIUM 3.6 mmol/L (3.5-5.1)
[2024-03-22 07:39] LABS: HEMATOCRIT 32.2 % (35.4-49); HEMOGLOBIN 10.3 GM/dL (11.7-16.9); MCH 27.3 pg (25.7-33.7); MEAN CELL VOLUME 85.4 fl (80-96); MEAN PLT VOLUME 10.1 fl (7.5-11.1); PLATELET COUNT 114 10^3/uL (134-434); RBC 3.77 M/mm3 (4.00-5.60); RDW 14.1 % (11.9-15.9); WHITE BLOOD COUNT 3.2 K/mm3 (4.0-10.0)
[2024-03-22 07:46] LABS: BLOOD UREA NITROGEN 26.5 mg/dL (7-18); MAGNESIUM 1.8 mg/dL (1.8-2.4)
[2024-03-22 07:48] LABS: CREATININE 1.6 mg/dL (0.55-1.3); PHOSPHOROUS 3.8 mg/dL (2.5-4.9)
[2024-03-22 07:49] LABS: BILIRUBIN,TOTAL 0.7 mg/dL (0.2-1); TOT PROT 6.7 g/dl (6.4-8.2)
[2024-03-22 08:20] LABS: ALBUMIN 3.1 g/dl (3.4-5.0); CALCIUM 8.3 mg/dL (8.5-10.1)
[2024-03-22] MEDS ORDERED: ALBUTEROL SO4 2.5/IPRATROPIUM 0.5 INH SOL 3 ML VIAL.NEB. NEB ONE (08:23)
[2024-03-22] MEDS: ALBUTEROL SO4 2.5/IPRATROPIUM 0.5 INH SOL 3 ML VIAL.NEB. NEB SCH (08:27)
[2024-03-22] MEDS: ENOXAPARIN NA (PORCINE) 30 MG/0.3 ML DISP.SYRIN SQ SCH (09:18)
[2024-03-22] MEDS: CEFTRIAXONE 1 G/50 ML PREMIX 50 ML IVPB SCH (09:18)
[2024-03-22] MEDS: TORSEMIDE 20 MG TABLET (FP) PO SCH (09:18)
[2024-03-22] MEDS: metoPROLOL SUCCINATE 25 MG TAB.SR.24H (FP) PO SCH (09:18)
[2024-03-22] MEDS ORDERED: ENOXAPARIN NA (PORCINE) 30 MG/0.3 ML DISP.SYRIN SQ SCH (10:00)
[2024-03-22] MEDS ORDERED: TORSEMIDE 10 MG TABLET PO SCH (10:00)
[2024-03-22] MEDS: AZITHROMYCIN 250 MG TABLET PO SCH (12:52)
[2024-03-22] MEDS: OSELTAMIVIR PHOSPHATE 30 MG CAPSULE PO SCH (12:52)
[2024-03-22] MEDS: ASPIRIN COATED 81 MG TABLET.EC PO SCH (18:53)
[2024-03-22] MEDS: PATIENT'S OWN MEDICATION (NON-FORMULARY) (Betamethasone/Propylene Glyc [Betamethasone Dp A TP SCH (23:03)
[2024-03-23 06:41] LABS: POTASSIUM 3.4 mmol/L (3.5-5.1)
[2024-03-23 06:44] LABS: HEMOGLOBIN 11.2 GM/dL (11.7-16.9); MCH 27.8 pg (25.7-33.7); MCHC 32.9 g/dl (32.0-35.9); MEAN CELL VOLUME 84.4 fl (80-96); MEAN PLT VOLUME 9.9 fl (7.5-11.1); PLATELET COUNT 117 10^3/uL (134-434); RBC 4.03 M/mm3 (4.00-5.60); RDW 14.1 % (11.9-15.9); WHITE BLOOD COUNT 2.8 K/mm3 (4.0-10.0)
[2024-03-23 06:50] LABS: BLOOD UREA NITROGEN 44.2 mg/dL (7-18); CALCIUM 8.2 mg/dL (8.5-10.1)
[2024-03-23 06:53] LABS: CREATININE 1.7 mg/dL (0.55-1.3)
[2024-03-23] MEDS: POTASSIUM CHLORIDE TABS 20 MEQ TABLET.ER (FP) PO ONE (12:12)
[2024-03-23] MEDS: FUROSEMIDE 40 MG/4 ML INJECTABLE VIAL IVPUSH ONE (12:12)
[2024-03-23] MEDS ORDERED: FLU VACCINE (FLULAVAL) PF 45 MCG/0.5 ML SYRINGE 2024-2025 IM ONE (13:00)
[2024-03-24 07:59] LABS: BASO % 0.5 % (0-2.0); EOS % 0.1 % (0-4.5); HEMATOCRIT 35.3 % (35.4-49); HEMOGLOBIN 11.2 GM/dL (11.7-16.9); LYMPH % 22.2 % (8-40); MCHC 31.6 g/dl (32.0-35.9); MEAN CELL VOLUME 85.4 fl (80-96); MEAN PLT VOLUME 9.8 fl (7.5-11.1); NEUT % 62.2 % (42.8-82.8); PLATELET COUNT 133 10^3/uL (134-434); RBC 4.13 M/mm3 (4.00-5.60); RDW 13.1 % (11.9-15.9); WHITE BLOOD COUNT 3.4 K/mm3 (4.0-10.0)
[2024-03-24 08:25] LABS: POTASSIUM 3.6 mmol/L (3.5-5.1)
[2024-03-24 08:36] LABS: CALCIUM 8.4 mg/dL (8.5-10.1)
[2024-03-24 08:37] LABS: ALBUMIN 3.1 g/dl (3.4-5.0); BLOOD UREA NITROGEN 33.3 mg/dL (7-18); CREATININE 1.4 mg/dL (0.55-1.3)
[2024-03-24 08:38] LABS: BILIRUBIN,TOTAL 0.7 mg/dL (0.2-1)
[2024-03-24 08:39] LABS: TOT PROT 6.9 g/dl (6.4-8.2)
[2024-03-24 14:32] VITALS: BMI 18.1
[2024-03-24] MEDS: amLODIPine BESYLATE 5 MG TABLET (FP) PO ONE (20:12)
[2024-03-24 22:04] VITALS: PULSE 60; RESP 16
[2024-03-24 22:06] VITALS: TEMP 99.6
[2024-03-25 06:36] VITALS: BP 167/93
[2024-03-25 06:49] LABS: BASO % 0.6 % (0-2.0); EOS % 0.5 % (0-4.5); HEMATOCRIT 37.7 % (35.4-49); HEMOGLOBIN 11.8 GM/dL (11.7-16.9); LYMPH % 18.1 % (8-40); MCH 26.9 pg (25.7-33.7); MCHC 31.4 g/dl (32.0-35.9); MEAN CELL VOLUME 85.7 fl (80-96); MEAN PLT VOLUME 10.1 fl (7.5-11.1); MONO % 11.9 % (3.8-10.2); NEUT % 68.9 % (42.8-82.8); PLATELET COUNT 149 10^3/uL (134-434); RDW 13.9 % (11.9-15.9)
[2024-03-25 07:17] LABS: ALBUMIN 3.4 g/dl (3.4-5.0); CALCIUM 8.7 mg/dL (8.5-10.1)
[2024-03-25 07:18] LABS: BLOOD UREA NITROGEN 26.9 mg/dL (7-18)
[2024-03-25 07:21] LABS: BILIRUBIN,TOTAL 0.6 mg/dL (0.2-1); CREATININE 1.2 mg/dL (0.55-1.3); TOT PROT 7.5 g/dl (6.4-8.2)
[2024-03-25] MEDS: TORSEMIDE 20 MG TABLET (FP) PO SCH (09:24)
[2024-03-25] MEDS: EMPAGLIFLOZIN (JARDIANCE) 10 MG TABLET PO SCH (09:24)
[2024-03-25] MEDS: VALSARTAN 160 MG TABLET PO SCH (09:25)
[2024-03-25] MEDS: ACETAMINOPHEN 325 MG TABLET (FP) PO PRN (10:41)
== END 2024-03-25 17:00 | disposition home or self-care (01) | DRG 194 ==
LOC: JER 15:29 → JERBED 18:46 → OBSVTOIN 03-22 08:40 → J2W 03-22 09:13
PROVIDERS: ADMIT Internal Medicine; ATTEND Internal Medicine
DX: J18.9 Pneumonia, unspecified organism (principal); D61.818 Other pancytopenia; I24.89 Other forms of acute ischemic heart disease; I50.22 Chronic systolic (congestive) heart failure; E44.0 Moderate protein-calorie malnutrition; Z68.1 Body mass index [BMI] 19.9 or less, adult; J10.1 Influenza due to other identified influenza virus with other respiratory manifestations; I11.0 Hypertensive heart disease with heart failure; I25.10 Atherosclerotic heart disease of native coronary artery without angina pectoris; I48.91 Unspecified atrial fibrillation; I27.20 Pulmonary hypertension, unspecified; I16.0 Hypertensive urgency; N40.0 Benign prostatic hyperplasia without lower urinary tract symptoms; M54.16 Radiculopathy, lumbar region; Z95.2 Presence of prosthetic heart valve
CPT/HCPCS: 0241U-QW; 36415; 71046-TC-FY; 71250-TC; 76775-TC; 80048; 80053; 82550; 82553; 82570; 83735; 83880; 84100; 84484; 84540; 85025; 85027; 85610; 85730; 86850; 86900; 86901; 87040; 87081; 87481; 87899; 93005; 93010; 93306-TC; 94640; 97116-GP; 97162-GP; 99285-25; G0378; J0131